=== PATIENT | female | born 1960 | race Hispanic/Latino ===

== ENCOUNTER → 2023-08-07 | Emergency (ER) | payer SELFPAY ==
[~2023-08-07] MED LIST: DERMABOND SKIN ADHESIVE TOP ONE; TDAP (DIPHTH,PERTUSS(ACELL),TET VAC) 0.5 ML VIAL IMVAC ONE
--- NOTE | 2023-08-07 13:14 | RAD REPORT ---
EXAM DESCRIPTION: CT - Head Brain Wo Cont - 08/07/2023 1:07 pm CLINICAL HISTORY: Head injury status post fall COMPARISON: none TECHNIQUE: Computed axial tomography of the head was obtained. IV contrast was not requested. All CT scans are performed using dose optimization technique as appropriate and may include automated exposure control or mA/KV adjustment according to patient size. FINDINGS: An intracranial bleed is not seen The ventricles are normal in caliber No significant hypodense areas within the brain visualized No extra-axial fluid collection is noted. Fluid within the sinuses/ mastoids is not seen IMPRESSION: No acute intracranial abnormality is seen If patient's symptoms persist MRI of the brain would be recommended
--- NOTE | 2023-08-07 13:36 | ER ---
Nurse's Notes [facility] Name: Kaila Mtz Age: 62 yrs Sex: Female : 1960 Arrival Date: 08/07/2023 Time: 12:52 Bed 18 Private MD: Diagnosis: Unspecified injury of head, initial encounter;Laceration without foreign body of unspecified part of head Presentation: 08/07 12:53 Chief complaint: Patient states: she tripped and [place] [facility] [place] hitting her forehead. patient presents to the ED with an abrasion to her chin, left pinky and a laceration to her forehead. Coronavirus screen: At this time, the client does not indicate any symptoms associated with coronavirus-19. Ebola Screen: No symptoms or risks identified at this time. Risk Assessment: Do you want to hurt yourself or someone else? Patient reports no desire to harm self or others. Onset of symptoms was August 07, 2023. 12:53 Method Of Arrival: EMS: [facility] ap3 12:53 Acuity: POPPY 3 ap3 12:57 Initial Sepsis Screen: Does the patient meet any 2 criteria? No. Patient's initial mb9 sepsis screen is negative. Does the patient have a suspected source of infection? No. Patient's initial sepsis screen is negative. Triage Assessment: 12:55 General: Appears in no apparent distress. Behavior is calm, cooperative, appropriate ap3 for age. Pain: Complains of pain in forehead. Neuro: Level of Consciousness is awake, alert, obeys commands, Oriented to person, place, time, situation, Appropriate for age Speech is normal. Cardiovascular: Patient's skin is warm and dry. Respiratory: Airway is patent Respiratory effort is even, unlabored, Respiratory pattern is regular, symmetrical. Derm: Wound noted forehead, chin and left hand. 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 - Social history:: Smoking status: Patient denies any tobacco usage or history of. - Family history:: not pertinent. - Hospitalizations: : No recent hospitalization is reported. Screenin:56 [facility] ED Fall Risk Assessment (Adult) History of falling in the last 3 months, ap3 including since admission Yes- single mechanical fall (1 pt) Confusion or Disorientation No (0 pts) Intoxicated or Sedated No (0 pts) Impaired Gait No (0 pts) Mobility Assist Device Used No (0 pt) Altered Elimination No (0 pt). Abuse screen: Denies threats or abuse. Nutritional screening: No deficits noted. Tuberculosis screening: No symptoms or risk factors identified. Assessment: 12:58 General: Appears in no apparent distress. Behavior is calm, cooperative. Pain: Denies mb9 pain. Neuro: [place] Agitation-Sedation Scale (RASS): 0 - Alert and Calm Level of Consciousness is awake, alert, obeys commands, Oriented to person, place, time, situation, Appropriate for age. Neuro: Pupils are PERRLA. Cardiovascular: Patient's skin is warm and dry. Respiratory: Airway is patent Respiratory effort is even, unlabored, Respiratory pattern is regular, symmetrical. GI: No signs and/or symptoms were reported involving the gastrointestinal system. : No signs and/or symptoms were reported regarding the genitourinary system. EENT: No signs and/or symptoms were reported regarding the EENT system. Derm: abrasion noted to chin and forehead. Vital Signs: 12:56 BP 153 / 81; Pulse 98; Resp 18; Pulse Ox 100% on R/A; Weight 53.52 kg; Height 5 ft. 2 mb9 in. ; 12:56 Body Mass Index 21.58 (53.52 kg, 157.48 cm) mb9 [place] Coma Score: 12:57 Eye Response: spontaneous(4). Motor Response: obeys commands(6). Verbal Response: rn oriented(5). Total: 15. 13:34 Eye Response: spontaneous(4). Motor Response: obeys commands(6). Verbal Response: rn oriented(5). Total: 15. ED Course: 12:53 Patient arrived in ED. ap3 12:53 Joe Michelle MD is Attending Physician. rn 12:54 Triage completed. ap3 12:56 Mary Mcallister, RN is Primary Nurse. mb9 12:56 Arm band placed on. mb9 12:56 Patient has correct armband on for positive identification. Bed in low position. Call ap3 light in reach. Side rails up X 1. 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 Pulse ox on. NIBP on. 13:07 CT Head Brain wo Cont In Process Unspecified. EDMS 13:46 No provider procedures requiring assistance completed. Patient did not have IV access mb9 during this emergency room visit. Administered Medications: 13:26 Drug: Tetanus Toxoid,Adsorbed IM 0.5 ml IM once; Provide Vaccine Information Statement mb9 (VIS). 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 mb9 Outcome: 13:35 Discharge ordered by . rn 13:49 Discharged to home ambulatory, mb9 13:49 Condition: stable 13:49 Discharge instructions given to patient, Instructed on discharge instructions, follow up and referral plans. Demonstrated understanding of instructions, follow-up care, 13:49 Patient left the ED. mb9 Signatures: Dispatcher [employer] EDMS Joe Michelle MD MD rn Prokisch, Amanda, RN RN ap3 Mary Mcallister RN RN mb9 Corrections: (The following items were deleted from the chart) 12:57 12:56 BP 153 / 81; Pulse 98bpm; Resp 18bpm; Pulse Ox 100%; mb9 mb9
--- NOTE | 2023-08-07 13:36 | EDPHYS ---
Physician Documentation [facility] Name: Kaila Mtz Age: 62 yrs Sex: Female : 1960 Arrival Date: 08/07/2023 Time: 12:52 Bed 18 Private MD: ED Physician Joe Michelle HPI: 08/07 12:57 This 62 yrs old Female presents to ER via EMS with complaints of fall, head injury. rn 12:57 The patient or guardian reports injury, pain. The complaints affect the forehead. rn Onset: The symptoms/episode began/occurred just prior to arrival. Associated signs and symptoms: Loss of consciousness: This patient did not experience any loss of consciousness. Pertinent negatives: incontinence, neck pain, seizure, shortness of breath, vomiting. Severity of symptoms: At their worst the symptoms were mild, in the emergency department the symptoms are unchanged. The patient has not experienced similar symptoms in the past. Patient reports tripped in the parking lot, was accidental, fell forward and struck head on floor. No LOC. Remembers all events. No blood thinners. Reports bruising and small cut to right forehead. Denies any injuries other than head.. Historical: - Allergies: 12:54 No Known Allergies; ap3 - Home Meds: 12:54 levothyroxine oral [Active]; ap3 - PMHx: 12:54 Hypothyroidism; ap3 - Immunization history:: Last tetanus immunization: unknown. - Social history:: Smoking status: Patient denies any tobacco usage or history of. - Family history:: not pertinent. - Hospitalizations: : No recent hospitalization is reported. ROS: 12:57 Constitutional: Negative for fever, chills, and weight loss, Eyes: Negative for injury, rn pain, redness, and discharge, Neck: Negative for injury, pain, and swelling, Cardiovascular: Negative for chest pain, palpitations, and edema, Respiratory: Negative for shortness of breath, cough, wheezing, and pleuritic chest pain, Abdomen/GI: Negative for abdominal pain, nausea, vomiting, diarrhea, and constipation, Back: Negative for injury and pain, MS/Extremity: Negative for injury and deformity, Skin: Positive for laceration to right forehead Neuro: + headache and injury Exam: 12:57 Constitutional: This is a well developed, well nourished patient who is awake, alert, rn and in no acute distress. Head/Face: Normocephalic, 1 cm superficial vertical laceration right forehead, no foreign body, no active bleeding, clean edges Eyes: Pupils equal round and reactive to light, extra-ocular motions intact. ENT: No oral trauma Neck: No midline cervical tenderness Chest/axilla: Normal chest wall appearance and motion. Nontender with no deformity. No crepitus Cardiovascular: Regular rate and rhythm. No pulse deficits. Respiratory: Speaking full sentences, unlabored. No increased work of breathing, no retractions or nasal flaring. Abdomen/GI: Soft, non-tender Back: No spinal tenderness. No costovertebral tenderness. Full range of motion. MS/ Extremity: Pulses equal, no cyanosis. Neurovascular intact. Full, normal range of motion. Equal circumference. Neuro: Awake and alert, GCS 15, oriented to person, place, time, and situation. Cranial nerves II-XII grossly intact. Motor strength 5/5 in all extremities. Sensory grossly intact. Vital Signs: 12:56 BP 153 / 81; Pulse 98; Resp 18; Pulse Ox 100% on R/A; Weight 53.52 kg; Height 5 ft. 2 mb9 in. ; 12:56 Body Mass Index 21.58 (53.52 kg, 157.48 cm) mb9 [place] Coma Score: 12:57 Eye Response: spontaneous(4). Motor Response: obeys commands(6). Verbal Response: rn oriented(5). Total: 15. 13:34 Eye Response: spontaneous(4). Motor Response: obeys commands(6). Verbal Response: rn oriented(5). Total: 15. Laceration: 13:34 Wound Repair of 1cm ( 0.4in ) subcutaneous laceration to forehead. Distal rn neuro/vascular/tendon intact. Wound prep: Extensive cleansing by nurse, Wound irrigation. Skin closed with 1 thin layer Adhesive skin closure using Dermabond. Dressed with steri-strips. Patient tolerated well. MDM: 12:53 Patient medically screened. rn 13:34 Differential diagnosis: Contusion of Hematoma on Laceration of Intracranial bleed- rn Concussion cerebral contusion. Data reviewed: vital signs, nurses notes, radiologic studies, CT scan, and as a result, I will discharge patient. Counseling: I had a detailed discussion with the patient and/or guardian regarding the historical points, exam findings, and any diagnostic results supporting the discharge/admit diagnosis, radiology results, the need for outpatient follow up, to return to the emergency department if symptoms worsen or persist or if there are any questions or concerns that arise at home. Response to treatment: the patient's symptoms have markedly improved after treatment, and as a result, I will discharge patient. Special discussion: Based on the patient's history, exam and DX evaluation, there is no indication for emergent intervention or inpatient TX. It is understood by the patient/guardian that if the SXs persist or worsen they need to return immediately for re-evaluation. I discussed with the patient/guardian in detail that at this point there is no indication for admission to the hospital. It is understood, however, that if the symptoms persist or worsen the patient needs to return immediately for re-evaluation. 08/07 12:56 Order name: CT Head Brain wo Cont; Complete Time: 13:17 rn 08/07 13:19 Order name: Wound Care; Complete Time: 13:23 rn 08/07 13:19 Order name: Dermabond; Complete Time: 13:23 rn 08/07 13:19 Order name: Wound dressing; Complete Time: 13:23 rn Administered Medications: 13:26 Drug: Tetanus Toxoid,Adsorbed IM 0.5 ml IM once; Provide Vaccine Information Statement mb9 (VIS). 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: [employer]; Exp: SatNov 27 2024; Lot #: [id number]; Series: 1 of 1; Patient Consent: Obtained; Date/Time: ; Source Name: Kaila Mtz; Source Relationship: Self; Address Information: [address] [place] [address]; Education: Provided; VIS Presented Date: ; VIS Publication: Tetanus/Diphtheria (Td) Vaccine VIS 10/16/2016 (historic)} Route: IM; Site: right deltoid; Disposition Summary: 08/07/23 13:35 Discharge Ordered Notes: Location: Home rn Problem: new rn Symptoms: have improved rn Condition: Stable rn Diagnosis - Unspecified injury of head, initial encounter rn - Laceration without foreign body of unspecified part of head rn Followup: rn - With: Private Physician - When: As needed - Reason: Recheck today's complaints, Re-evaluation by your physician Discharge Instructions: - Discharge Summary Sheet rn - Tissue Adhesive rn medical surgical - Head Injury, Adult rn - Facial Laceration rn Forms: - Medication Reconciliation Form rn - Thank You Letter rn - 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
[2023-08-07 16:32] VITALS: BP 153/81; O2SAT 100
== END ==
LOC: ER 12:52
PROC: 0HQ1XZZ Repair Face Skin, External Approach (ICD-10-PCS; principal; 2023-08-07)
DX: S01.81XA Laceration without foreign body of other part of head, initial encounter (principal); Z23 Encounter for immunization; E03.9 Hypothyroidism, unspecified
CPT/HCPCS: 70450